=== PATIENT | female | born 2000 | race Caucasian/White ===

== ENCOUNTER 2018-10-02 07:48 | Outpatient (CLI) | payer MEDICAID, SELFPAY ==
--- NOTE | 2018-10-02 07:54 | DI.US_ITS ---
SYMPTOM/DIAGNOSIS: VASCULAR THORACIC OUTLET SYNDROME, LT ARM PAIN, LT AXILLARY PAIN,M79.622, G54.0, BRACHIAL PLEXUS DISORDER LEFT UPPER EXTREMITY ULTRASOUND: The visualized portions of the left jugular and subclavian veins are patent with normal color flow. The left axillary, brachial, basilic and cephalic veins show normal compression, augmentation and color flow. There is no evidence of a deep venous thrombus identified. IMPRESSION: No evidence of a left upper extremity deep venous thrombus.
== END 2018-10-02 08:08 ==
PROVIDERS: PCP Pediatrics; Visit Provider Pediatrics
DX: G54.0 Brachial plexus disorders (principal); M79.602 Pain in left arm
CPT/HCPCS: 93971

== ENCOUNTER 2019-02-01 15:28 | Outpatient (REF) | payer MEDICAID, SELFPAY ==
[2019-02-05 15:09] LABS: Chlamydia Result Negative; GC Result Negative; Specimen Description URINE
== END 2019-02-01 15:48 ==
LOC: LBN 15:28
PROVIDERS: PCP Pediatrics; Visit Provider Nurse Practitioner Pediatrics
DX: Z11.3 Encounter for screening for infections with a predominantly sexual mode of transmission (principal)
CPT/HCPCS: 87491; 87591

== ENCOUNTER 2019-05-11 13:46 | Outpatient (CLI) | payer MEDICAID, SELFPAY ==
[2019-05-11 14:35] LABS: Abs Immature Grans 0.01 k/cumm (0.0-0.09); Absolute Basophil Count 0.01 k/cumm (0.0-0.2); Absolute Eosinophil Count 0.06 k/cumm (0.0-0.7); Absolute Lymphocyte Count 1.61 k/cumm (1.2-3.4); Absolute Monocyte Count 0.48 k/cumm (0.11-0.7); Basophils % 0.2; Eosinophils % 1.1; HCT 40.1 % (36.0-46.0); HGB 13.6 g/dL (12.0-15.5); Immature Grans % 0.2; Lymphocytes % 30.6; Mean Corp. HGB Concentration 33.9 g/dL (32.0-36.0); Mean Corpuscular Hemoglobin 30.2 pg (27.0-33.0); Mean Corpuscular Volume 88.9 fL (80-95); Mean Platelet Volume 9.8 fL (8.0-11.0); Monocytes % 9.1; Neutrophils % 58.8; Platelet Count 295 x1000/uL (130-400); RBC 4.51 m/cumm (4.00-5.20); RBC Distribution Width 12.3 % (11.7-14.6); White Blood Cell Count 5.27 k/cumm (4.4-10.8)
[2019-05-14 10:28] LABS: IgE 375 IU/ml (<158)
== END 2019-05-11 14:06 ==
PROVIDERS: PCP Pediatrics; Visit Provider Internal Medicine
DX: J45.40 Moderate persistent asthma, uncomplicated (principal)
CPT/HCPCS: 36415; 82785; 85025

== ENCOUNTER 2020-08-18 09:54 | Outpatient (CLI) | payer MEDICAID, SELFPAY ==
[2020-08-19 14:37] LABS: COVID-19 RT-PCR UVMMC Result Negative (Negative)
== END 2020-08-18 10:14 ==
PROVIDERS: PCP Pediatrics; Visit Provider Pediatrics
DX: Z11.52 Encounter for screening for COVID-19 (principal)
CPT/HCPCS: U0003

== ENCOUNTER 2020-11-13 16:01 | Outpatient (REF) | payer MEDICAID, SELFPAY ==
--- NOTE | 2020-11-13 15:15 | PAPFT_PTH ---
PATIENT: Krupa Nassar LOC: [facility] U#:[id number] AGE/SX: ROOM: RE11/13/[address]: Gala Layton DO : 2000 BED: DIS: 11/13/2020 SPEC #: [id number] RECD: 11/13/20 17:41 STATUS: [place] REQ #: [id number] ARLIN: 11/13/20 15:[address]: Gala Layton DEPT: [facility] Cytology RECD BY: Elenita Pino ENTERED: 11/13/20 17:41 SP TYPE: PAPFT OTHR DR: Juan C Villanueva MD Tissues: 1 - CX/ENDOCX FOR PAP SMEARS Procedures: PAP THIN PREP/[facility] Screening Comments: [id number] (CHLAMYDIA/GC)
[2020-11-14 15:35] LABS: Chlamydia Result Positive (Negative); GC Result Negative (Negative)
== END 2020-11-13 16:02 | disposition home or self-care (01) ==
LOC: LBN 16:01
PROVIDERS: PCP Pediatrics; Visit Provider Obstetrics & Gynecology
DX: Z12.4 Encounter for screening for malignant neoplasm of cervix (principal); Z11.3 Encounter for screening for infections with a predominantly sexual mode of transmission
CPT/HCPCS: 87491; 87591; 88142; 87624

== ENCOUNTER 2020-12-08 16:00 | Outpatient (REF) | payer MEDICAID, SELFPAY ==
[2020-12-10 14:21] LABS: Chlamydia Result Negative (Negative); GC Result Negative (Negative)
== END 2020-12-08 16:01 | disposition home or self-care (01) ==
LOC: LBN 16:00
PROVIDERS: PCP Pediatrics; Visit Provider Obstetrics & Gynecology
DX: A74.89 Other chlamydial diseases (principal); Z94.5 Skin transplant status
CPT/HCPCS: 87491; 87591

== ENCOUNTER 2021-03-27 19:12 | Outpatient (REF) | payer MEDICAID, SELFPAY ==
[2021-03-30 14:41] LABS: Chlamydia Result Negative (Negative); GC Result Negative (Negative)
== END 2021-03-27 19:13 | disposition home or self-care (01) ==
LOC: LBN 19:12
PROVIDERS: PCP Pediatrics; Visit Provider Nurse Practitioner Family
DX: Z11.3 Encounter for screening for infections with a predominantly sexual mode of transmission (principal)
CPT/HCPCS: 87491; 87591

== ENCOUNTER 2021-07-07 03:10 | Outpatient (CLI) | payer MEDICAID, SELFPAY ==
[2021-07-07 13:03] LABS: Abs Immature Grans 0.03 10^3/uL (0.0-0.06); Absolute Basophil Count 0.02 10^3/uL (0.0-0.2); Absolute Eosinophil Count 0.12 10^3/uL (0.0-0.7); Absolute Lymphocyte Count 2.28 10^3/uL (1.2-3.4); Absolute Monocyte Count 0.84 10^3/uL (0.1-0.8); Absolute Neutrophil Count 5.16 10^3/uL (1.2-6.7); Basophils % 0.2; Eosinophils % 1.4; HCT 44.3 % (36.0-46.0); HGB 14.6 g/dL (11.2-15.7); Immature Grans % 0.4; MCH 29.6 pg (27.0-33.0); MCV 89.7 fL (80-95); MPV 9.5 fL (8.0-11.0); Monocytes % 9.9; Neutrophils % 61.1; Nucleated RBC 0 %; Platelet Count 306 10^3/uL (130-400); RBC 4.94 10^6/uL (3.93-5.22); RDW 12.3 % (11.7-14.6); RDW-SD 40.2 fL; WBC 8.45 10^3/uL (4.4-10.8)
[2021-07-07 15:07] LABS: ALT 21 U/L (14-59); AST 20 U/L (15-37); Alkaline Phosphatase 64 U/L (46-116); Anion Gap 7.9 mmol/L (3-11); BUN 13 mg/dL (7-18); Bilirubin, Total 0.6 mg/dL (0.2-1.0); CO2 27.1 mmol/L (21.0-32.0); CREATININE 0.9 mg/dL (0.55-1.02); Calcium 8.9 mg/dL (8.5-10.1); Chloride 104 mmol/L (98-107); FREE T4 1.37 ng/dL (0.76-1.46); Glucose 90 mg/dL (74-106); Potassium 4.1 mmol/L (3.5-5.1); Sodium 139 mmol/L (136-145); TSH 2.74 uIU/mL (0.36-3.74); Total Protein 7.6 g/dL (6.4-8.2)
[2021-07-08 10:49] LABS: Lyme Ab w Rflx to Lyme Confirm Negative (Negative)
[2021-07-08 11:03] LABS: EBNA IgG Positive (Negative); EBV Interpretation (See Note); VCA IgG Positive (Negative); VCA IgM Negative (Negative)
[2021-07-09 17:27] LABS: Anaplasma phagocytophilum Negative (Negative); B. miyamotoi PCR Negative (Negative); Babesia divergens/MO-1 Negative (Negative); Babesia duncani Negative (Negative); Babesia microti Negative (Negative); Ehrlichia chaffeensis Negative (Negative); Ehrlichia ewingii/canis Negative (Negative); Ehrlichia muris eauclairensis Negative (Negative)
== END 2021-07-07 03:11 | disposition home or self-care (01) ==
LOC: LBO 03:11
PROVIDERS: PCP Pediatrics; Visit Provider Pediatrics
DX: R06.02 Shortness of breath (principal); R53.83 Other fatigue
CPT/HCPCS: 36415; 80053; 87798; 84439; 84443; 85025; 86618; 86664; 86665

== ENCOUNTER 2021-07-16 09:01 | Outpatient (CLI) | payer MEDICAID, SELFPAY ==
--- NOTE | 2021-07-16 10:00 | RT.EKG_ITS ---
APPROVED REPORT Exam: Resting ECG Reason for Exam: increasing fatigue; chest feels tight, lungs clear Patient Location: O HR:69 bpm ECG Measurements Heart Rate 69 AXIS AR 134 P 58 QRSd 78 QRS 61 QT 397 T 26 QTc 425 Conclusion Sinus arrhythmia...V-rate 60- 81, variation>10% Normal Electrocardiogram
== END 2021-07-16 09:02 | disposition home or self-care (01) ==
PROVIDERS: PCP Pediatrics; Visit Provider Pediatrics
DX: R53.83 Other fatigue (principal); R07.89 Other chest pain
CPT/HCPCS: 93005; 93010

== ENCOUNTER 2021-08-27 02:03 | Outpatient (CLI) | payer MEDICAID, SELFPAY ==
--- NOTE | 2021-08-27 06:30 | DI.US_ITS ---
APPROVED REPORT EXAM: Comprehensive 2D, Doppler, and color-flow Echocardiogram Patient Location: Out-Patient Tile Fitter: Mona Riddle RDCS (AE) Indications: Easily Fatigued, Chest tighness Other Information Study Quality: Good Conclusion Normal left ventricular wall thickness and chamber size. Estimated ejection fraction is 60 to 65%. Wall motion is normal Normal right ventricular size and systolic function Both atria are normal in size There is no structural or hemodynamically significant valvular disease Wall motion Left Ventricle The left ventricle is normal size. The left ventricular systolic function is normal. The left ventric ular ejection fraction is within the normal range. There is normal left ventricular wall thickness. T here is normal LV segmental wall motion. There is no ventricular septal defect visualized. LVEF is 60 -65%. Right Ventricle The right ventricle is normal size. The right ventricular systolic function is normal. The RVSP is 29 .2 mmHg. Atria The left atrium size is normal. The right atrium size is normal. The interatrial septum is intact wit h no evidence for an atrial septal defect. Aortic Valve The aortic valve is normal in structure. Aortic valve is trileaflet. There is no aortic valvular sten osis. No aortic regurgitation is present. Mitral Valve The mitral valve is normal in structure. No evidence of mitral valve stenosis. Trace mitral regurgita tion. Tricuspid Valve The tricuspid valve is normal in structure. There is no tricuspid valve stenosis. Trace tricuspid reg urgitation. Pulmonic Valve The pulmonary valve is normal in structure. There is no pulmonic valvular stenosis. There is no pulmo priscila valvular regurgitation. Great Vessels The aortic root is normal in size. The ascending aorta is normal in size. Aortic arch is normal in ca liber. IVC is normal in size and collapses >50% with inspiration. Pericardium There is no pericardial effusion. 2D Dimensions IVSD d PLAX 0.80 cm F: 0.6-1.0 LV Vol A2C d MOD 107.4 mL LVPW d PLAX 0.81 cm F: 0.6 - 1.0 LV Vol A4C d MOD 82.3 mL LVID d PLAX 4.42 cm F: 3.8 - 5.2 LA vol/ BSA A2C s A-L 17.3 mL/m2 LVDs 2.90 cm F: 2.2 - 3.5 LA vol/ BSA A4C s A-L 16.5 mL/m2 Ao Root d 2.03 cm F: 2.7 - 3.3 LA Vol/ BSA Biplane s A-L 17.6 mL/m2 RA Area A4C 8.82 cm2 LA Area A4C s MOD 11.45 cm2 RA Vol/ BSA A4C s A-L 12.0 mL/m2 LA Area A2C s MOD 11.25 cm2 Ao Asc Diam d 2.61 cm F: 2.3 - 3.1 LV EF A4C MOD 59.4 % LV EF Teichholz 62.3 % LV EF A2C MOD 58.3 % LVEF (Miller's) 59.21 % F: 54 - 74 LV EF Biplane MOD 59.2 % LV Volume 78.00 mL F: 46 - 106 SV 56.23 mL LV Volume Index 50.32 mL/m2 F: 29 - 61 SV Index 36.13 mL/m2 LV Vol Biplane MOD 95.0 mL FS 33.40 % M-Mode TAPSE 1.58 cm (M/F) >1.7 LV Diastology MV E' medial 0.147 (>0.07 m/s) E/A Ratio 1.9 LV E/e MED 7.10 (<14) MV E Vmax 1.04 (0.4-1.3 m/s) MV E' lateral 0.190 (>0.1 m/s) MV A Vmax 0.55 (0.4-1.3 m/s) LV E/e LAT 5.45 (<14) MV E/A Ratio 1.85 MV E/E' medial 7.11 MV E/E' lateral 5.50 Aortic Valve LVOT Area 2.56 cm2 AoV Area Vmax 1.88 cm2 LVOT Vmax 1.22 m/s AoV Area/ BSA (Vmax) 1.21 cm2/m2 LVOT Mean Solis. 0.76 m/s SORAYA Mean Solis. 1.76 cm2 LVOT Peak Grad 5.9 mmHg SORAYA Mean Solis. Index 1.13 cm2/m2 LVOT Mean Grad 2.8 mmHg LVOT VTI 0.266 m LVOT Diam s 1.80 cm AoV Vmax 1.66 m/s Velocity Ratio 0.73 AoV Mean Solis. 1.11 m/s AoV Peak Grad 11.0 mmHg LVOT SV 68.03 mL AoV Mean Grad 5.6 mmHg AoV VTI 0.311 m AoV Area VTI 2.19 cm2 AoV Area/ BSA (VTI) 1.40 cm/m2 Mitral Valve MV DT 177 (160-240 msec) MV PHT 51 msec MV Area PHT 4.29 cm2 MV VTI 0.311 m MV Area VTI 2.19 (4.0-6.0 cm2) Pulmonary Valve PV Vmax 1.03 (0.5-1.5 m/s) RVOT Peak Gr. 2.76 mmHg PV Peak Grad 4.2 mmHg RVOT Mean Gr. 1.40 mmHg PV Mean Grad 2.6 mmHg RVOT VTI 0.203 m PV VTI 0.236 m RVOT Vmax 0.83 m/s Tricuspid Valve TR Peak Grad 26.2 mmHg TR Vmax 2.56 m/s RA Pressure 3.00 mmHg RVSP (TR) 29.2 mmHg
== END 2021-08-27 02:23 ==
PROVIDERS: PCP Pediatrics; Visit Provider Pediatrics
DX: R07.89 Other chest pain (principal); R53.83 Other fatigue
CPT/HCPCS: 93306